=== PATIENT | male | born 2005 | race Caucasian/White ===

== ENCOUNTER 2025-03-19 12:51 | Outpatient (OUT) | payer OTHER, SELFPAY ==
[2025-03-19 13:28] LABS: Glucose Urine UA NEGATIVE (NEGATIVE)
[2025-03-19 13:38] LABS: Cast Seen? NONE SEEN #/LPF (NONE SEEN); Crystals Seen? None Seen #/HPF (None Seen)
[2025-03-19 13:48] LABS: Alanine Aminotransferase <6 U/L (16-63); Albumin Globulin Ratio 1.6; Albumin Level 4.5 g/dL (3.4-5.0); Alkaline Phosphatase 67 U/L (46-116); Anion Gap 12.3; Aspartate Amino Transferase 13 U/L (15-37); Blood Urea Nitrogen 15.0 mg/dL (6.4-19.3); Calcium 9.4 mg/dL (8.5-10.1); Carbon Dioxide 30.6 mmol/L (21.0-32.0); Chloride 104 mmol/L (98-107); Estimated GFR (African America >60 (>=60 mL/min/1.73m^2); Estimated GFR (Non-African Ame >60 (>=60 mL/min/1.73m^2); Globulin 2.9 g/dL; Glucose 87 mg/dL (74-106); Potassium 3.9 mmol/L (3.5-5.1); Sodium 143 mmol/L (136-145); Total Protein 7.4 g/dL (6.4-8.2)
== END 2025-03-19 12:52 | disposition home or self-care (01) ==
LOC: LAB 12:56
PROVIDERS: PCP Family Medicine; Visit Provider Family Medicine
DX: R10.30 Lower abdominal pain, unspecified (principal)
CPT/HCPCS: 36415; 80053; 81001